=== PATIENT | female | born 1935 | race Caucasian/White ===

== ENCOUNTER 2016-04-11 14:11 | Inpatient (IN) | payer OTHER ==
[~2016-04-11] VITALS: Ht 157.5 cm; Wt 65.0 kg
[~2016-04-11 14:11] MED LIST: ANT25 PO; ASPI1CAP2 PO; BUSP1TAB46 PO; CALC600T57 PO; CYM30 PO; FOLI1TAB7 PO; HYDR2.5C37 TOP; LEVO150T9 PO; MIRA1TAB3 PO; MRLP527 PO; MTHI50 INJ; MULT-1102 PO; MUPI2OIN9 TOP; ONDA4TAB10 SL; PLQ200 PO; RANI300T PO; SIMV-150 PO; TAPE1TAB9 PO; TAPE50TA PO
[2016-04-11] MEDS ORDERED: MENTOIN TOP (14:51)
[2016-04-11] MEDS ORDERED: POTA10CA28 PO (14:51)
[2016-04-11] MEDS ORDERED: LOPE-5 PO (14:51)
[2016-04-11] MEDS ORDERED: LEVO1TAB35 PO (14:51)
[2016-04-11] MEDS ORDERED: NUTR-7 PO (14:51)
[2016-04-11] MEDS ORDERED: CALCTAB7 PO (14:51)
[2016-04-11] MEDS ORDERED: SACC250C PO (14:51)
--- NOTE | 2016-04-11 15:19 | EMERGENCY ROOM VISIT NOTE ---
History Report prepared by Devorah: Julisa Valenzuela Under the Supervision of: Dr. Alyssa Acosta M.D. First contact with patient: 14:31 Chief Complaint: RESPIRATORY PROBLEMS Stated Complaint: CONFUSION/ LETHARGIC Nursing Triage Summary: PT PRESENTS VIA AMBULANCE FROM [facility] WITH C/O HYPOXIA AND MENTAL STATUS CHANGES DAUGHTER AT BEDSIDE REPORTS THAT PT HAS HAD SEVERAL RECENT HOSPITALIZATIONS INCLUDING FOR PNEUMONIA AND WEAKNESS PT HAS HAD CONFUSION AND WORSENING SOB BEGINNING FRIDAY 04/07 LEVAQUIN PO BEGAN OVER THE WEEKEND AT [facility] LASIX GIVEN X 3 DAYS LAST WEEK FOR BILATERAL HAND AND LOWER EXTREMITY SWELLING History of Present Illness The patient is a 81 year old female who presents to the Emergency Room with complaints of for worsening generalized weakness beginning 2 days prior to arrival. The patient recently has been experiencing hypoxia. When she exerts herself her oxygen stats drop to 86% and during ambulation her oxygen stats dropped into the 60s. The patient is currently at [facility] for rehabilitation for pneumonia, altered mental status, and weakness. She has been there a few times in the past month. Upon her last discharge the patient experienced diarrhea due to outpatient antibiotics and was back to [facility] a few days later. The patient's daughter is concerned due to the patient worsening weakness, not being strong enough to feed herself, confusion, and the new hypoxia. She has not had a fever recently. Blood work, urine sample and chest X-Ray was done earlier this week. The blood work and urine shows no abnormalities, the chest X-Ray did show a small area of pneumonia. She is currently on Levaquin. She also within the past year has lost 102 pounds. Source of History: patient Onset: 2 days [employer]AME DES[employer] Position: other (global) Quality: other (generalized weakness) Timing: worsening Associated Symptoms: + diarrhea Note: Patient is experiencing hypoxia and altered mental status. Review of Systems See HPI for pertinent positives & negatives. A total of 10 systems reviewed and were otherwise negative. 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) (21) Lupus (22) Lyme disease (23) Meniere disease (24) Nausea (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 (26) Osteoporosis Nos (27) Pleural effusion (28) Rheumatoid arthritis (29) Right lower lobe pneumonia (30) Stomach problems (31) Stroke (32) Stroke-like symptoms (33) Ulcer (34) Vomiting (35) Weakness Surgical Problems: (1) Post-operative state (2) Post-operative state Family History Diabetes mellitus FH: cancer FH: lung disease Gallbladder disease Hypertension Kidney disease Social History Smoking Status: Former Smoker Alcohol Use: none Drug Use: none Marital Status: Housing Status: assisted living Occupation Status: retired Current/Historical Medications Scheduled Aspirin-Dipyridamole (Aspirin/Dipyridamole 25-200 mg), 1 CAP PO BID Calcium Carbonate-Vitamin D W/ (Caltrate 600 Plus), 1 TAB PO BID Duloxetine HCl (Duloxetine HCl), 30 MG PO BID Folic Acid (Folvite), 3 MG PO DAILY Hydroxychloroquine Sulfate (Hydroxychloroquine Sulfat), 200 MG PO BID Levofloxacin (Levaquin), 750 MG PO HS Levothyroxine Sodium (Levothyroxine Sodium), 150 MCG PO DAILY Menthol-Zinc Oxide (Calmoseptine), 1 APPLN TOP QPM Methotrexate (Methotrexate Sodium), 25 MG INJ WK Mirabegron (Myrbetriq Er), 50 MG PO DAILY Multiple Vitamin (One Daily Essential), 1 TAB PO DAILY Nutritional Supplements (Boost), 1 DOSE PO TID Polyethylene (Polyethylene Glycol 3350), 17 GM PO DAILY Potassium Chloride (Micro-K Ext Rel), 10 MEQ PO QAM Ranitidine Hcl (Zantac), 300 MG PO BID Saccharomyces Boulardii (Florastor), 250 MG PO QAM Simvastatin (Simvastatin), 10 MG PO DAILY Tapentadol Hcl (Nucynta Er), 50 MG PO BID Scheduled PRN Buspirone Hcl (Buspirone Hcl), 7.5 MG PO BID PRN for Anxiety Loperamide Hcl (Imodium A-D), 2 MG PO DAILY PRN for Diarrhea Meclizine HCl (Meclizine HCl), 25 MG PO TID PRN for Dizziness or Vertigo Ondasetron Odt (Zofran Odt), 4 MG SL Q4-6HRS PRN for Nausea Tapentadol Hcl (Nucynta), 50 MG PO Q6H PRN for Pain Allergies Coded Allergies: BEE STING (Unverified Allergy, Severe, THROAT SWELLING, 03/08/16) Carbamazepine (Verified Allergy, Unknown, unkn, 03/08/16) Gabapentin (Verified Allergy, Unknown, SWELLING, 03/08/16) NSAIDs (Verified Adverse Reaction, Severe, ELEVATES LIVER ENZYMES, ) Atorvastatin (Verified Adverse Reaction, Intermediate, AFFECTS DIGESTION, 03/08/16) Acetaminophen (Verified Adverse Reaction, Unknown, contraindicated, impairs liver function, 03/08/16) Chocolate (Verified Adverse Reaction, Unknown, Other, 03/08/16) Due to Meniere's Disease Meloxicam (Verified Adverse Reaction, Unknown, AFFECTS KIDNEYS, 03/08/16) Metformin (Verified Adverse Reaction, Unknown, AFFECTS KIDNEYS, 03/08/16) Physical Exam Vital Signs Date Time Temp Pulse Resp B/P Pulse Ox O2 Delivery O2 Flow Rate FiO2 04/11/16 18:39 89 16 160/64 100 Room Air 04/11/16 15:56 86 19 160/73 100 Nasal Cannula 3.0 04/11/16 14:31 98 Nasal Cannula 3.0 04/11/16 14:22 36.8 86 20 135/55 98 Nasal Cannula 3.0 04/11/16 14:22 85 Room Air 04/11/16 14:22 85 Room Air 04/11/16 14:21 89 Physical Exam Vital signs reviewed. General: Elderly, frail, on nasal canula O2 breathing from mouth, in no significant distress. HEENT: No scleral icterus, PERRLA, neck supple. Atraumatic. Dry mucous membranes. Cardiovascular: Regular rate and rhythm, no extra sounds. Pulmonary: Diminished breath sounds bilaterally. Abdomen: Soft, nontender, nondistended, positive bowel sounds. Musculoskeletal: Atraumatic, no peripheral edema. Neurologic: Patient somnolent, but arousable. Somewhat verbal but falls asleep quickly Skin: 1+ pitting edema to lower extremities bilaterally. Medical Decision & Procedures ER Provider Diagnostic Interpretation: X-ray results as stated below per my interpretation and radiologist interpretation. Other radiology results as stated below per my review and radiologist interpretation: CHEST ONE VIEW PORTABLE HISTORY: Short of breath. Hypoxia. Altered mental status. COMPARISON: Chest 03/17/2016. FINDINGS: The heart remains mildly enlarged. There are mitral annulus calcifications. Small to moderate bilateral pleural effusions have slightly increased in size. Hazy appearance to the bilateral midlung zones which favor fluid within the bilateral major fissures. Progressive interstitial and vascular thickening consistent with pulmonary edema. Degenerative changes within the bilateral shoulders. Prior cholecystectomy. There is a 1 segment nodular density at the base of right lower lobe. This is not present on the prior study. IMPRESSION: 1. Progression of the mild interstitial pulmonary edema and [id number] bilateral pleural effusions. 2. Hazy appearance to the bilateral midlung zones. This favors layering pleural fluid within the bilateral major fissures. 3. A 1 cm nodular density the right lower lobe. This was not present on the prior study and may be due to summation of shadows. This bears watching future examinations to ensure resolution. Electronically signed by: Conor Garsia M.D. 04/11/2016 4:27 PM Dictated Date/Time: 04/11/2016 4:[address] ANGIOGRAM OF THE CHEST CLINICAL HISTORY: Hypoxia and elevated d-dimer. Shortness of breath. Suspected pulmonary embolism. COMPARISON STUDY: 02/26/2016 TECHNIQUE: Following the IV administration of 90 mL of Optiray-320, CT angiogram of the thorax was performed from the thoracic inlet to the lung bases utilizing the pulmonary embolus protocol. Images are reviewed in the axial, sagittal, and coronal planes. IV contrast was administered without complication. MIP imaging was performed. CT DOSE: 335.90 mGy.cm FINDINGS: No pathologically enlarged axillary mediastinal or hilar lymph nodes were visualized. There was no evidence of thoracic aortic dilatation. There were no pulmonary artery filling defects to indicate acute pulmonary embolism. There is a moderate left pleural effusion and small right pleural effusion. There are left lower lobe compressive atelectatic changes. There are nodular airspace opacities within the right lower lobe, and right upper lobe. The findings are likely secondary to a pneumonitis. Repeat imaging subsequent to appropriate antibiotic therapy is recommended. There are degenerative changes present within the thoracic spine. Posterior osteophytes result in severe spinal canal narrowing at the T9-T10 and T10-11 levels. IMPRESSION: 1. No CT evidence of acute pulmonary embolism 2. Moderate left pleural effusion and small right pleural effusion 3. Left lower lobe compressive atelectatic changes 4. Nodular airspace opacities within the right lower lobe and right lower lobe, likely secondary to pneumonia 5. Persistent degenerative changes within the thoracic spine with posterior osteophytes and secondary significant spinal canal narrowing Electronically signed by: Bebo Figueroa M.D. 04/11/2016 6:59 PM Dictated Date/Time: 04/11/2016 6:53 PM Laboratory Results 04/11/16 16:30 Red Blood Count 3.22, Mean Corpuscular Volume 92.9, Mean Corpuscular Hemoglobin 29.8, Mean Corpuscular Hemoglobin Concent 32.1, Mean Platelet Volume 9.4, Neutrophils (%) (Auto) 90.9, Lymphocytes (%) (Auto) 5.9, Monocytes (%) (Auto) 2.8, Eosinophils (%) (Auto) 0.0, Basophils (%) (Auto) 0.0, Neutrophils # (Auto) 13.45, Lymphocytes # (Auto) 0.87, Monocytes # (Auto) 0.42, Eosinophils # (Auto) 0.00, Basophils # (Auto) 0.00 04/11/16 16:30 Test 04/11/16 15:25 04/11/16 15:50 04/11/16 16:30 D-Dimer 5130 ug/L FEU (0-500) Bedside Lactic Acid Venous 0.76 mmol/L (0.90-1.70) White Blood Count 14.80 K/uL (4.8-10.8) Red Blood Count 3.22 M/uL (4.2-5.4) Hemoglobin 9.6 g/dL (12.0-16.0) Hematocrit 29.9 % (37-47) Mean Corpuscular Volume 92.9 fL (80-100) Mean Corpuscular Hemoglobin 29.8 pg (25-34) Mean Corpuscular Hemoglobin Concent 32.1 g/dl (32-36) Platelet Count 217 K/uL (130-400) Mean Platelet Volume 9.4 fL (7.4-10.4) Neutrophils (%) (Auto) 90.9 % Lymphocytes (%) (Auto) 5.9 % Monocytes (%) (Auto) 2.8 % Eosinophils (%) (Auto) 0.0 % Basophils (%) (Auto) 0.0 % Neutrophils # (Auto) 13.45 K/uL (1.4-6.5) Lymphocytes # (Auto) 0.87 K/uL (1.2-3.4) Monocytes # (Auto) 0.42 K/uL (0.11-0.59) Eosinophils # (Auto) 0.00 K/uL (0-0.5) Basophils # (Auto) 0.00 K/uL (0-0.2) RDW Standard Deviation 53.5 fL (36.4-46.3) RDW Coefficient of Variation 15.8 % (11.5-14.5) Immature Granulocyte % (Auto) 0.4 % Immature Granulocyte # (Auto) 0.06 K/uL (0.00-0.02) Anion Gap 5.0 mmol/L (3-11) Est Creatinine Clear Calc Drug Dose 58.6 ml/min Estimated GFR () 96.9 Estimated GFR (Non- 83.6 BUN/Creatinine Ratio 38.9 (10-20) Calcium Level 9.6 mg/dl (8.5-10.1) Magnesium Level 1.6 mg/dl (1.8-2.4) Total Bilirubin 0.4 mg/dl (0.2-1) Direct Bilirubin 0.2 mg/dl (0-0.2) Aspartate Amino Transf (AST/SGOT) 32 U/L (15-37) Alanine Aminotransferase (ALT/SGPT) 41 U/L (12-78) Alkaline Phosphatase 71 U/L (45-117) Total Creatine Kinase 62 U/L (26-192) Creatine Kinase MB 4.2 ng/ml (0.5-3.6) Creatine Kinase MB Ratio 6.8 (0-3.0) Total Protein 6.2 gm/dl (6.4-8.2) Albumin 2.4 gm/dl (3.4-5.0) Laboratory results per my review. Medications Administered Medications (Trade) Dose Ordered Sig/Ugo Route Start Time Stop Time Status Last Admin Dose Admin Sodium Chloride (Nss 1000ml) 1,000 ml @ 125 mls/hr Q8H STAT IV 04/11/16 15:24 04/12/16 15:52 DC 04/11/16 15:24 125 MLS/HR ECG Indication: weakness Rate (beats per minute): 86 Rhythm: normal sinus Findings: PAC, RBBB, no acute ischemic change, no ectopy, other ( repolarization abnormalities in anterior leads) Change: no significant change (from 03/10/16) ED Course 1431: Past medical records reviewed. The patient was evaluated in room B12. A complete history and physical examination was performed. 1524: Sodium Chloride 1,000 ml @ 125 mls/hr IV. 1730: I reviewed the patient's case with Dr. Valentino ORONA. Dr. Avelar will evaluate the patient for further management. 1751: Aspirin Chew 324 mg PO. Medical Decision The patient is a 81 year old female who presents to the ED with complaints of weakness. Differentials include etiologies such as metabolic, infection, hypo/ hyperglycemia, electrolyte abnormalities, cardiac sources, intracerebral event, toxicologic, neurologic, as well as others were entertained. This patient was evaluated and appeared to be in no significant distress although she is somnolent and has an altered mental status according to her daughter. IV access was obtained and laboratory work was drawn. The patient was hydrated with normal saline solution. She is found to have a leukocytosis and an mildly elevated troponin. Chest x-ray reveals pleural effusions and patchy densities. Laboratory work reveals a markedly elevated d-dimer. EKG reveals a right bundle-branch block with PACs and no acute ischemia. CT scan of the chest was ordered and is pending. Patient was ordered aspirin to chew although nursing staff states that she often chokes. This was held. Patient and family were informed of the findings, patient will be evaluated by the hospitalist service for further management. Consults Time Called: 1728 Consulting Physician: Dr. Valentino ORONA Returned Call: 1730 I reviewed the patient's case with Dr. Valentino ORONA. Dr. Avelar will evaluate the patient for further management. Impression Primary Impression: Elevated troponin Additional Impressions: Altered mental status Leukocytosis Scribe Attestation The scribe's documentation has been prepared under my direction and personally reviewed by me in its entirety. I confirm that the note above accurately reflects all work, treatment, procedures, and medical decision making performed by me. Departure Information Dispostion Being Evaluated By Hospitalist Referrals Luis Parada M.D. (PCP) Problem Qualifiers Additional Impressions: Altered mental status Altered mental status type: delirium Qualified Codes: R41.0 - Disorientation , unspecified Leukocytosis Leukocytosis type: unspecified Qualified Codes: D72.829 - Elevated white blood cell count, unspecified
[2016-04-11] MEDS ORDERED: SODIUM CHLORIDE 0.9% 1000ML 1,000 ML IV STA (15:24)
--- NOTE | 2016-04-11 16:28 | DIAGNOSTIC IMAGING REPORT ---
CHEST ONE VIEW PORTABLE HISTORY: Short of breath. Hypoxia. Altered mental status. COMPARISON: Chest 03/17/2016. FINDINGS: The heart remains mildly enlarged. There are mitral annulus calcifications. Small to moderate bilateral pleural effusions have slightly increased in size. Hazy appearance to the bilateral midlung zones which favor fluid within the bilateral major fissures. Progressive interstitial and vascular thickening consistent with pulmonary edema. Degenerative changes within the bilateral shoulders. Prior cholecystectomy. There is a 1 segment nodular density at the base of right lower lobe. This is not present on the prior study. IMPRESSION: 1. Progression of the mild interstitial pulmonary edema and [id number] bilateral pleural effusions. 2. Hazy appearance to the bilateral midlung zones. This favors layering pleural fluid within the bilateral major fissures. 3. A 1 cm nodular density the right lower lobe. This was not present on the prior study and may be due to summation of shadows. This bears watching future examinations to ensure resolution. Electronically signed by: Conor Garsia M.D. 04/11/2016 4:27 PM Dictated Date/Time: 04/11/2016 4:24 PM
[2016-04-11 16:37] LABS: COMPLETE YES; HEMATOCRIT 29.9 % (37-47); IG% 0.4 %; LYMPH % 5.9 %; LYMPH ABS # 0.87 K/uL (1.2-3.4); MEAN CELL VOLUME 92.9 fL (80-100); MEAN CORPUSCULAR HEMOGLOBIN 29.8 pg (25-34); MEAN CORPUSCULAR HGB CONC 32.1 g/dl (32-36); MEAN PLATELET VOLUME 9.4 fL (7.4-10.4); MONO % 2.8 %; NEUT % 90.9 %; PLATELET COUNT 217 K/uL (130-400); RED BLOOD COUNT 3.22 M/uL (4.2-5.4)
[2016-04-11 17:07] LABS: BUN/CREATININE RATIO 38.9 (10-20); CALCIUM 9.6 mg/dl (8.5-10.1); CREATININE 0.67 mg/dl (0.60-1.20); MAGNESIUM 1.6 mg/dl (1.8-2.4); POTASSIUM 3.9 mmol/L (3.5-5.1)
[2016-04-11] MEDS ORDERED: OPTIRAY 320 IV PRN (17:15)
[2016-04-11 17:23] LABS: CKMB/CK RATIO 6.8 (0-3.0)
[2016-04-11] MEDS ORDERED: ASPIRIN 324 MG CHEW PO STA (17:51)
--- NOTE | 2016-04-11 19:00 | DIAGNOSTIC IMAGING REPORT ---
CT ANGIOGRAM OF THE CHEST CLINICAL HISTORY: Hypoxia and elevated d-dimer. Shortness of breath. Suspected pulmonary embolism. COMPARISON STUDY: 02/26/2016 TECHNIQUE: Following the IV administration of 90 mL of Optiray-320, CT angiogram of the thorax was performed from the thoracic inlet to the lung bases utilizing the pulmonary embolus protocol. Images are reviewed in the axial, sagittal, and coronal planes. IV contrast was administered without complication. MIP imaging was performed. CT DOSE: 335.90 mGy.cm FINDINGS: No pathologically enlarged axillary mediastinal or hilar lymph nodes were visualized. There was no evidence of thoracic aortic dilatation. There were no pulmonary artery filling defects to indicate acute pulmonary embolism. There is a moderate left pleural effusion and small right pleural effusion. There are left lower lobe compressive atelectatic changes. There are nodular airspace opacities within the right lower lobe, and right upper lobe. The findings are likely secondary to a pneumonitis. Repeat imaging subsequent to appropriate antibiotic therapy is recommended. There are degenerative changes present within the thoracic spine. Posterior osteophytes result in severe spinal canal narrowing at the T9-T10 and T10-11 levels. IMPRESSION: 1. No CT evidence of acute pulmonary embolism 2. Moderate left pleural effusion and small right pleural effusion 3. Left lower lobe compressive atelectatic changes 4. Nodular airspace opacities within the right lower lobe and right lower lobe, likely secondary to pneumonia 5. Persistent degenerative changes within the thoracic spine with posterior osteophytes and secondary significant spinal canal narrowing Electronically signed by: Bebo Figueroa M.D. 04/11/2016 6:59 PM Dictated Date/Time: 04/11/2016 6:53 PM
[2016-04-11] MEDS ORDERED: ONDANSETRON INJ 2 MG/ML 2 ML VIAL IV PRN (19:45)
[2016-04-11] MEDS ORDERED: ZOLPIDEM TARTRATE 5 MG TAB PO PRN (19:45)
[2016-04-11] MEDS ORDERED: TAPENTADOL HCL 50 MG TAB PO PRN (19:45)
[2016-04-11] MEDS ORDERED: MECLIZINE HCL 25 MG TAB PO PRN (19:45)
[2016-04-11] MEDS ORDERED: NITROGLYCERIN 0.4 MG SL PER TAB CHARGE SL PRN (19:45)
[2016-04-11] MEDS ORDERED: METHYLPREDNISOLONE IV 60 MG in SYRINGE 0 ML IV SCH (19:45)
[2016-04-11] MEDS ORDERED: VANCOMYCIN INJ 1,500 MG in SODIUM CHLORIDE 0.9% 500ML 500 ML IV STA (20:10)
[2016-04-11] MEDS: BOOST VANILLA PO SCH ×2 (21:00)
[2016-04-11] MEDS: IPRATROPIUM BROMIDE NEB SOLN 0.02% 2.5 ML VIAL INH SCH (21:00)
[2016-04-11] MEDS ORDERED: SIMVASTATIN 10 MG TAB PO SCH (21:00)
[2016-04-11] MEDS ORDERED: MENTHOL-ZINC OXIDE 360 APPLN/120 GM TUBE EXT SCH (21:00)
[2016-04-11] MEDS: LEVALBUTEROL 1.25MG/0.5ML NEB INH SCH (21:00)
[2016-04-11] MEDS ORDERED: LEVALBUTEROL/IPRATROPIUM NEB INH SCH (21:00)
[2016-04-11 21:16] VITALS: BP 192/83; PULSE 79; TEMP 36.6; Ht 157.5 cm; Wt 65.0 kg
[2016-04-11] MEDS ORDERED: PIPERACILL/TAZOBAC IV 3.375 GM in DEXTROSE 5% 100ML IV ONE (21:30)
[2016-04-11] MEDS ORDERED: IPRATROPIUM BROMIDE NEB SOLN 0.02% 2.5 ML VIAL INH PRN (21:30)
[2016-04-11] MEDS ORDERED: LEVALBUTEROL 1.25MG/0.5ML NEB INH PRN (21:30)
[2016-04-11] MEDS ORDERED: VANCOMYCIN CONSULT ACTIVE PRN (21:45)
[2016-04-11] MEDS ORDERED: PIPERACILL/TAZOBAC CONSULT ACTIVE PRN (21:45)
[2016-04-11] MEDS: METHYLPREDNISOLONE IV 60 MG in SYRINGE 0 ML IV SCH (21:56)
[2016-04-11] MEDS: CALCIUM 600MG + VIT D 400 IU TAB PO SCH (21:58)
[2016-04-11] MEDS: DULOXETINE (CYMBALTA) 30 MG CAP PO SCH (21:58)
[2016-04-11] MEDS: DIPYRIDAMOLE/ASPIRIN CAP PO SCH (22:00)
[2016-04-11] MEDS ORDERED: LEVOFLOXACIN / D5W 500 MG in PREMIXED IN D5W 100 ML IV SCH (22:00)
[2016-04-11] MEDS: GUAIFENESIN 600 MG TABCR PO SCH (22:02)
[2016-04-11] MEDS: RANITIDINE HCL 150 MG TAB PO SCH (22:03)
[2016-04-11] MEDS: HYDROXYCHLOROQUINE SULFATE 200 MG TAB PO SCH (22:03)
[2016-04-11] MEDS: SACCHAROMYCES BOUL (FLORASTOR) 250 MG CAP PO SCH (22:04)
[2016-04-11] MEDS: TAPENTADOL ER 50 MG TABCR PO SCH (22:09)
[2016-04-11] MEDS: ALBUMIN HUMAN 25% 12.5 GM/50 ML VIAL IV SCH ×2 (22:17→22:31)
--- NOTE | 2016-04-11 22:59 | Pharmacy Progress Note ---
Pharmacy Antibiotic Consult Date of Service: Apr 11, 2016. Pharmacy Dosing Scope Pharmacy is consulted to initiate vancomycin and Zosyn IV dosing therapy, order appropriate labs and adjust drug dose/frequency. Subjective The patient is a 81 year old female admitted on Apr 11, 2016 at 19:39 with pnx. Objective Height (Feet): 5 Height (Inches): 2.00 Weight (Kilograms): 65.000 Lab Results (24hrs): Laboratory Tests Test 04/11/16 16:30 BUN/Creatinine Ratio 38.9 Blood Urea Nitrogen 26 mg/dl Creatinine 0.67 mg/dl White Blood Count 14.80 K/uL Red Blood Count 3.22 M/uL Hemoglobin 9.6 g/dL Hematocrit 29.9 % Mean Corpuscular Volume 92.9 fL Mean Corpuscular Hemoglobin 29.8 pg Mean Corpuscular Hemoglobin Concent 32.1 g/dl Platelet Count 217 K/uL Mean Platelet Volume 9.4 fL Neutrophils (%) (Auto) 90.9 % Lymphocytes (%) (Auto) 5.9 % Monocytes (%) (Auto) 2.8 % Eosinophils (%) (Auto) 0.0 % Basophils (%) (Auto) 0.0 % Neutrophils # (Auto) 13.45 K/uL Lymphocytes # (Auto) 0.87 K/uL Monocytes # (Auto) 0.42 K/uL Eosinophils # (Auto) 0.00 K/uL Basophils # (Auto) 0.00 K/uL Micro Results: Blood cx X 2 are pending. Recent Pertinent Medications Levaquin 750mg po hs prior to admission. Assessment & Plan Pt is admitted with pnx from [facility] where she was admitted for rehab following a recent hospital stay. During that admission, she was on a 7-day course of vancomycin. Dose was 1000mg q 24h, trough below goal range so will shorten interval and obtain trough level with 4th dose. Vancomycin: Loading dose: 1500 mg IV X 1 dose (~25mg/kg) then: 1000mg IV every 18 hours (~15mg/kg). Goal trough level estimate: between 15 - 20 mcg/ml for good lung penetration. Peak and trough or random level has been ordered for: 2/2 prior to 0400 dose. Pt also receiving: Zosyn 3.375gm q 8 h extended infusion for CrCl greater than 20ml/min. Levaquin 500mg IV q 24h is ordered on day #2 of Levaquin therapy (750mg po daily prior to admission). Pharmacy will continue to follow and will adjust dose/frequency as necessary. Thank you
[2016-04-12] VITALS (10 sets, daily range): BP systolic 135–178; BP diastolic 61–102; PULSE 79–93; TEMP 36.5–37; O2SAT 94–100
[2016-04-12] MEDS: IPRATROPIUM BROMIDE NEB SOLN 0.02% 2.5 ML VIAL INH SCH ×3 (01:57→14:07)
[2016-04-12] MEDS: LEVALBUTEROL 1.25MG/0.5ML NEB INH SCH ×3 (01:57→14:07)
[2016-04-12] MEDS: PIPERACILL/TAZOBAC IV 3.375 GM in DEXTROSE 5% 100ML 100 ML IV SCH ×2 (02:14→10:02)
[2016-04-12] MEDS: ALBUMIN HUMAN 25% 12.5 GM/50 ML VIAL IV SCH ×4 (02:22→10:01)
--- NOTE | 2016-04-12 04:07 | History and Physical ---
History & Physical Date & Time of Service: Apr 12, 2016 at 03:48 Chief Complaint: Elevated Troponin, Right Lower Lobe Pneumonia Primary Care Physician: Luis Parada M.D. History of Present Illness Source: patient, family The patient is a 81-year-old female brought to the emergency department by ambulance from [facility] with complaint of hypoxia and mental status changes. The patient is not able to contribute to her history of present illness due to these changes, and her daughter who is at bedside axis historian. Patient was just recently hospitalized for pneumonia. Her daughter reports worsening shortness of breath and confusion since April 07, when she was begun on Levaquin orally at [facility]. She had also been given Lasix orally 3 days last week for bilateral hand and lower extremity swelling. She was found to have hypoxia to 86%, with dropping during ambulation into the 60s. Past Medical/Surgical History Medical Problems: (1) Acute renal failure syndrome Status: Resolved (2) Shelton's palsy Status: Chronic (3) Depressive Disorder Nec Status: Chronic (4) Diabetes Status: Chronic (5) Diabetes Status: Chronic (6) Esophageal Reflux Status: Chronic (7) Foot drop, bilateral Status: Chronic (8) Gallbladder problem Status: Chronic (9) Heart disease Status: Chronic (10) HTN (hypertension) Status: Chronic (11) Hyponatremia Status: Resolved (12) Hypothyroidism Nos Status: Chronic (13) Intractable pain Status: Resolved (14) Kidney problem Status: Chronic (15) Laceration of left elbow Status: Resolved (16) Laceration of left elbow Status: Resolved (17) Lupus Status: Chronic (18) Lyme disease Status: Resolved (19) Meniere disease Status: Chronic (20) osteoarthritis right shoulder Status: Chronic (21) Osteoporosis Nos Status: Chronic (22) Rheumatoid arthritis Status: Chronic (23) Stomach problems Status: Resolved (24) Ulcer Status: Resolved (25) Vomiting Status: Resolved Surgical Problems: (1) Post-operative state Status: Resolved (2) Post-operative state Status: Resolved Family History Diabetes mellitus FH: cancer FH: lung disease Gallbladder disease Hypertension Kidney disease Social History Smoking Status: Never Smoker Smokeless Tobacco Use: No Alcohol Use: none Drug Use: none Marital Status: Housing status: lives with family Occupational Status: retired Immunizations History of Influenza Vaccine: Yes History of Tetanus Vaccine?: Yes Tetanus Immunization Date: Apr 28, 1999 History of Pneumococcal: Yes Pneumococcal Date: Nov 22, 2002 History of Hepatitis B Vaccine: No Multi-Drug Resistant Organisms History of MDRO: No Allergies Coded Allergies: BEE STING (Unverified Allergy, Severe, THROAT SWELLING, 03/08/16) Carbamazepine (Verified Allergy, Unknown, unkn, 03/08/16) Gabapentin (Verified Allergy, Unknown, SWELLING, 03/08/16) NSAIDs (Verified Adverse Reaction, Severe, ELEVATES LIVER ENZYMES, ) Atorvastatin (Verified Adverse Reaction, Intermediate, AFFECTS DIGESTION, 03/08/16) Acetaminophen (Verified Adverse Reaction, Unknown, contraindicated, impairs liver function, 03/08/16) Chocolate (Verified Adverse Reaction, Unknown, Other, 03/08/16) Due to Meniere's Disease Meloxicam (Verified Adverse Reaction, Unknown, AFFECTS KIDNEYS, 03/08/16) Metformin (Verified Adverse Reaction, Unknown, AFFECTS KIDNEYS, 03/08/16) Home Medications Scheduled Aspirin-Dipyridamole (Aspirin/Dipyridamole 25-200 mg), 1 CAP PO BID Calcium Carbonate-Vitamin D W/ (Caltrate 600 Plus), 1 TAB PO BID Duloxetine HCl (Duloxetine HCl), 30 MG PO BID Folic Acid (Folvite), 3 MG PO DAILY Hydroxychloroquine Sulfate (Hydroxychloroquine Sulfat), 200 MG PO BID Levofloxacin (Levaquin), 750 MG PO HS Levothyroxine Sodium (Levothyroxine Sodium), 150 MCG PO DAILY Menthol-Zinc Oxide (Calmoseptine), 1 APPLN TOP QPM Methotrexate (Methotrexate Sodium), 25 MG INJ WK Mirabegron (Myrbetriq Er), 50 MG PO DAILY Multiple Vitamin (One Daily Essential), 1 TAB PO DAILY Nutritional Supplements (Boost), 1 DOSE PO TID Polyethylene (Polyethylene Glycol 3350), 17 GM PO DAILY Potassium Chloride (Micro-K Ext Rel), 10 MEQ PO QAM Ranitidine Hcl (Zantac), 300 MG PO BID Saccharomyces Boulardii (Florastor), 250 MG PO QAM Simvastatin (Simvastatin), 10 MG PO DAILY Tapentadol Hcl (Nucynta Er), 50 MG PO BID Scheduled PRN Buspirone Hcl (Buspirone Hcl), 7.5 MG PO BID PRN for Anxiety Loperamide Hcl (Imodium A-D), 2 MG PO DAILY PRN for Diarrhea Meclizine HCl (Meclizine HCl), 25 MG PO TID PRN for Dizziness or Vertigo Ondasetron Odt (Zofran Odt), 4 MG SL Q4-6HRS PRN for Nausea Tapentadol Hcl (Nucynta), 50 MG PO Q6H PRN for Pain Review of Systems The patient is unable to contribute to her review of systems due to altered mental status, and this is supplied by the daughter as noted above. Physical Exam Vital Signs Date Time Temp Pulse Resp B/P Pulse Ox O2 Delivery O2 Flow Rate FiO2 04/12/16 01:57 84 18 100 Nasal Cannula 3.0 04/12/16 00:05 36.6 79 16 157/61 100 Nasal Cannula 3.5 04/12/16 00:00 Nasal Cannula 3.0 04/11/16 21:16 36.6 79 20 192/83 Nasal Cannula 3.0 04/11/16 20:19 91 04/11/16 20:00 92 188/84 91 Nasal Cannula 4.0 04/11/16 18:39 89 16 160/64 100 Room Air 04/11/16 15:56 86 19 160/73 100 Nasal Cannula 3.0 04/11/16 14:31 98 Nasal Cannula 3.0 04/11/16 14:22 36.8 86 20 135/55 98 Nasal Cannula 3.0 04/11/16 14:22 85 Room Air 04/11/16 14:22 85 Room Air 04/11/16 14:21 89 The patient is lethargic, not responding other than moaning,. HEENT--PERRL, EOMI, mucous membranes and oropharynx dry. Neck--supple, no JVD or bruits, thyroid normal, trachea midline, no adenopathy. Heart--normal S1 and S2, no extra beats, no murmurs, rubs or gallops. Lungs--rhonchi and wheezes bilaterally, no respiratory distress, no accessory muscle use. Abdomen--normal bowel sounds and soft, nontender and nondistended, no hernias or masses, no organomegaly. Extremities--no cyanosis, clubbing. There is bilaterally 2+ pitting edema. There are good distal pulses b/l. Dermatologic--normal skin turgor, normal color, warm and dry, no abnormal lymph nodes, no rash. Neurologic--cranial nerves II through XII grossly intact. Rheumatologic--deferred Psychiatric--lethargic Diagnostics Laboratory Results Results Past 24 Hours Test 04/11/16 15:25 04/11/16 15:50 04/11/16 16:30 Range/Units D-Dimer 5130 0-500 ug/L FEU Bedside Lactic Acid Venous 0.76 0.90-1.70 mmol/L White Blood Count 14.80 4.8-10.8 K/uL Red Blood Count 3.22 4.2-5.4 M/uL Hemoglobin 9.6 12.0-16.0 g/dL Hematocrit 29.9 37-47 % Mean Corpuscular Volume 92.9 80-100 fL Mean Corpuscular Hemoglobin 29.8 25-34 pg Mean Corpuscular Hemoglobin Concent 32.1 32-36 g/dl Platelet Count 217 130-400 K/uL Mean Platelet Volume 9.4 7.4-10.4 fL Neutrophils (%) (Auto) 90.9 % Lymphocytes (%) (Auto) 5.9 % Monocytes (%) (Auto) 2.8 % Eosinophils (%) (Auto) 0.0 % Basophils (%) (Auto) 0.0 % Neutrophils # (Auto) 13.45 1.4-6.5 K/uL Lymphocytes # (Auto) 0.87 1.2-3.4 K/uL Monocytes # (Auto) 0.42 0.11-0.59 K/uL Eosinophils # (Auto) 0.00 0-0.5 K/uL Basophils # (Auto) 0.00 0-0.2 K/uL RDW Standard Deviation 53.5 36.4-46.3 fL RDW Coefficient of Variation 15.8 11.5-14.5 % Immature Granulocyte % (Auto) 0.4 % Immature Granulocyte # (Auto) 0.06 0.00-0.02 K/uL Sodium Level 134 136-145 mmol/L Potassium Level 3.9 3.5-5.1 mmol/L Chloride Level 87 98-107 mmol/L Carbon Dioxide Level 42 21-32 mmol/L Anion Gap 5.0 3-11 mmol/L Blood Urea Nitrogen 26 7-18 mg/dl Creatinine 0.67 0.60-1.20 mg/dl Est Creatinine Clear Calc Drug Dose 58.6 ml/min Estimated GFR () 96.9 Estimated GFR (Non- 83.6 BUN/Creatinine Ratio 38.9 10-20 Random Glucose 148 70-99 mg/dl Calcium Level 9.6 8.5-10.1 mg/dl Magnesium Level 1.6 1.8-2.4 mg/dl Total Bilirubin 0.4 0.2-1 mg/dl Direct Bilirubin 0.2 0-0.2 mg/dl Aspartate Amino Transf (AST/SGOT) 32 15-37 U/L Alanine Aminotransferase (ALT/SGPT) 41 12-78 U/L Alkaline Phosphatase 71 45-117 U/L Total Creatine Kinase 62 26-192 U/L Creatine Kinase MB 4.2 0.5-3.6 ng/ml Creatine Kinase MB Ratio 6.8 0-3.0 Troponin I 0.103 0-0.045 ng/ml Total Protein 6.2 6.4-8.2 gm/dl Albumin 2.4 3.4-5.0 gm/dl Microbiology Results 04/11/16 Blood Culture, Received Pending Diagnostic Radiology Patient Name: DANNY LOCKWOOD Unit Number: [id number] Dictated: 04/11/161623 Transcribed: 04/11/161623 Sharely[employer]Us Printed Date/Time: [~ rep prt dt]/[~ rep prt tm] [~ rep ct labl] - [~ rep ct ivnm] [facility] [place] [address] Dictated: 04/11/161623 Transcribed: 04/11/161623 Sharely.Us Printed Date/Time: [~ rep prt dt]/[~ rep prt tm] [~ rep ct labl] - [~ rep ct ivnm] CHEST ONE VIEW PORTABLE HISTORY: Short of breath. Hypoxia. Altered mental status. COMPARISON: Chest 03/17/2016. FINDINGS: The heart remains mildly enlarged. There are mitral annulus calcifications. Small to moderate bilateral pleural effusions have slightly increased in size. Hazy appearance to the bilateral midlung zones which favor fluid within the bilateral major fissures. Progressive interstitial and vascular thickening consistent with pulmonary edema. Degenerative changes within the bilateral shoulders. Prior cholecystectomy. There is a 1 segment nodular density at the base of right lower lobe. This is not present on the prior study. IMPRESSION: 1. Progression of the mild interstitial pulmonary edema and [id number] bilateral pleural effusions. 2. Hazy appearance to the bilateral midlung zones. This favors layering pleural fluid within the bilateral major fissures. 3. A 1 cm nodular density the right lower lobe. This was not present on the prior study and may be due to summation of shadows. This bears watching future examinations to ensure resolution. Electronically signed by: Conor Garsia M.D. 04/11/2016 4:27 PM Dictated Date/Time: 04/11/2016 4:24 PM The status of this report is Signed. Draft = Not yet reviewed or approved by Radiologist. Signed = Reviewed and approved by Radiologist. <AttendingPhy></AttendingPhy> <FamilyPhy>Luis Parada M.D.</FamilyPhy> < PrimaryPhy>Luis Parada M.D.</PrimaryPhy> <UnitNumber>[id number]</UnitNumber > <VisitNumber>[id number]</VisitNumber> <PatientName>DANNY LOCKWOOD</ PatientName> <DateOfBirth>1935</DateOfBirth> <Location>[facility]</Location> < ServiceDate>04/11/16</ServiceDate> <MNE>ESINDI</MNE> <OrderingPhy>Alyssa Acosta M.D.</OrderingPhy> <OrderingPhyMNE>f rep ord dr alvarez</OrderingPhyMNE> < DictatingPhyMNE>f rep dict dr alvarez</DictatingPhyMNE> <CCListMNE>f rep ct rakane</ CCListMNE> <AdmittingPhyMNE>f pt admit dr alvarez</AdmittingPhyMNE> <AttendingPhyMNE >f pt attend dr alvarez</AttendingPhyMNE> <ConsultingPhyMNE>f pt consult dr alvarez</ConsultingPhyMNE> <FamilyPhyMNE>f pt fam dr alvarez</FamilyPhyMNE> <OtherPhyMNE>f pt other dr alvarez</OtherPhyMNE> < PrimaryPhyMNE>f pt prim care dr alvarez</PrimaryPhyMNE> <ReferringPhyMNE>f pt referring dr alvarez</ReferringPhyMNE> Patient Name: DANNY LOCKWOOD Unit Number: [id number] Dictated: 04/11/161852 Transcribed: 04/11/161852 ARG Printed Date/Time: [~ rep prt dt]/[~ rep prt tm] [~ rep ct labl] - [~ rep ct ivnm] [facility] Radiology Department [place], [place] [id number] Dictated: 04/11/161852 Transcribed: 04/11/161852 ARG Printed Date/Time: [~ rep prt dt]/[~ rep prt tm] [~ rep ct labl] - [~ rep ct ivnm] [~ rep ct add3]] CT ANGIOGRAM OF THE CHEST CLINICAL HISTORY: Hypoxia and elevated d-dimer. Shortness of breath. Suspected pulmonary embolism. COMPARISON STUDY: 02/26/2016 TECHNIQUE: Following the IV administration of 90 mL of Optiray-320, CT angiogram of the thorax was performed from the thoracic inlet to the lung bases utilizing the pulmonary embolus protocol. Images are reviewed in the axial, sagittal, and coronal planes. IV contrast was administered without complication. MIP imaging was performed. CT DOSE: 335.90 mGy.cm FINDINGS: No pathologically enlarged axillary mediastinal or hilar lymph nodes were visualized. There was no evidence of thoracic aortic dilatation. There were no pulmonary artery filling defects to indicate acute pulmonary embolism. There is a moderate left pleural effusion and small right pleural effusion. There are left lower lobe compressive atelectatic changes. There are nodular airspace opacities within the right lower lobe, and right upper lobe. The findings are likely secondary to a pneumonitis. Repeat imaging subsequent to appropriate antibiotic therapy is recommended. There are degenerative changes present within the thoracic spine. Posterior osteophytes result in severe spinal canal narrowing at the T9-T10 and T10-11 levels. IMPRESSION: 1. No CT evidence of acute pulmonary embolism 2. Moderate left pleural effusion and small right pleural effusion 3. Left lower lobe compressive atelectatic changes 4. Nodular airspace opacities within the right lower lobe and right lower lobe, likely secondary to pneumonia 5. Persistent degenerative changes within the thoracic spine with posterior osteophytes and secondary significant spinal canal narrowing Electronically signed by: Bebo Figueroa M.D. 04/11/2016 6:59 PM Dictated Date/Time: 04/11/2016 6:53 PM The status of this report is Signed. Draft = Not yet reviewed or approved by Radiologist. Signed = Reviewed and approved by Radiologist. <AttendingPhy></AttendingPhy> <FamilyPhy>Luis Parada M.D.</FamilyPhy> < PrimaryPhy>Luis Parada M.D.</PrimaryPhy> <UnitNumber>[id number]</UnitNumber > <VisitNumber>[id number]</VisitNumber> <PatientName>DANNY LOCKWOOD</ PatientName> <DateOfBirth>1935</DateOfBirth> <Location>[facility]</Location> < ServiceDate>04/11/16</ServiceDate> <MNE>ESINDI</MNE> <OrderingPhy>Alyssa Acosta M.D.</OrderingPhy> <OrderingPhyMNE>f rep ord dr alvarez</OrderingPhyMNE> < DictatingPhyMNE>f rep dict dr alvarez</DictatingPhyMNE> <CCListMNE>f rep ct antonio</ CCListMNE> <AdmittingPhyMNE>f pt admit dr alvarez</AdmittingPhyMNE> <AttendingPhyMNE >f pt attend dr alvarez</AttendingPhyMNE> <ConsultingPhyMNE>f pt consult dr alvarez</ConsultingPhyMNE> <FamilyPhyMNE>f pt fam dr alvarez</FamilyPhyMNE> <OtherPhyMNE>f pt other dr alvarez</OtherPhyMNE> < PrimaryPhyMNE>f pt prim care dr alvarez</PrimaryPhyMNE> <ReferringPhyMNE>f pt referring dr alvarez</ReferringPhyMNE> EKG EKG with normal sinus rhythm at 89, right bundle branch block, no acute ST-T changes. Impression Assessment and Plan Right lower lobe pneumonia/bilateral pleural effusions left greater than right-- Vancomycin IV per renal dosing, Zosyn 3.375 mg IV every 8 hours, levofloxacin 500 mg IV every 24 hours, Solu-Medrol 40 mg IV every 8 hours, guaifenesin extended release 600 mg by mouth twice a day, nasal cannula 2 L of oxygen titrating to keep pulse ox greater than or equal to 92%. Elevated troponin/CHF/hypoalbuminemia--patient be admitted to the telemetry unit , for serial cardiac enzymes, cardiac rhythm monitoring, and a 2-D echocardiogram with Dopplers.. We'll place on albumin with Lasix IV every 6 hours for 4 doses. Lupus/cerebrovascular disease--continue Aggrenox 1 capsule by mouth twice a day , folic acid 3 mg by mouth daily, hydroxychloroquine sulfate 200 mg by mouth twice a day, Nucynta ER 50 mg by mouth twice a day. Methotrexate 25 mg injectable weekly will be on hold. Hypothyroidism--continue levothyroxine sodium 150 g by mouth daily. GERD--continue ranitidine 3 mg by mouth twice a day. Hypercholesterolemia--continue simvastatin 10 mg by mouth daily. Next Anxiety--resume buspirone at 7.5 mg by mouth twice a day, continue duloxetine 30 mg by mouth twice a day. Bladder spasm--continue Myrbetriq er 50 mg by mouth daily. Next Nutrition--boost 1 drink by mouth 3 times a day. Level of Care Telemetry Advanced Directives Existing Advance Directive: Yes Existing Living Will: Yes Existing Power of Medical Laboratory Specialist: Yes Resuscitation Status FULL RESUSCITATION VTE Prophylaxis VTE Risk Assessment Done? Y/N: Yes Risk Level: Moderate Given or contraindicated: SCD's Social Service Consult Lives in [facility]
[2016-04-12] MEDS ORDERED: LEVOTHYROXINE 150 MCG TAB PO SCH (06:00)
[2016-04-12] MEDS: METHYLPREDNISOLONE IV 60 MG in SYRINGE 0 ML IV SCH ×2 (06:29→14:05)
[2016-04-12] MEDS ORDERED: MAGNESIUM SULFATE 1GM / D5W 1 GM in PREMIXED IN D5W 100 ML IV ONE (07:30)
[2016-04-12] MEDS: GUAIFENESIN 600 MG TABCR PO SCH (08:53)
[2016-04-12] MEDS: DULOXETINE (CYMBALTA) 30 MG CAP PO SCH (08:53)
[2016-04-12] MEDS: DIPYRIDAMOLE/ASPIRIN CAP PO SCH (08:53)
[2016-04-12] MEDS: SACCHAROMYCES BOUL (FLORASTOR) 250 MG CAP PO SCH ×2 (08:54→14:00)
[2016-04-12] MEDS: RANITIDINE HCL 150 MG TAB PO SCH (08:55)
[2016-04-12] MEDS: HYDROXYCHLOROQUINE SULFATE 200 MG TAB PO SCH (08:55)
[2016-04-12] MEDS: CALCIUM 600MG + VIT D 400 IU TAB PO SCH (08:55)
[2016-04-12] MEDS: NYSTATIN SUSP 500,000 U/5 ML UDC PO SCH ×2 (08:56→14:06)
[2016-04-12] MEDS: BOOST VANILLA PO SCH ×4 (08:56→14:00)
[2016-04-12] MEDS: TAPENTADOL ER 50 MG TABCR PO SCH (08:58)
[2016-04-12] MEDS ORDERED: POTASSIUM CHLORIDE 10 MEQ TABCR PO SCH (09:00)
[2016-04-12] MEDS ORDERED: MIRABEGRON ER 25 MG TAB PO SCH (09:00)
[2016-04-12] MEDS ORDERED: MULTIVITAMIN TAB PO SCH (09:00)
--- NOTE | 2016-04-12 09:17 | Medical Student: [facility] ---
Med Student History & Physical Date & Time of Service: Apr 12, 2016 at 09:17 Chief Complaint: Elevated Troponin, Right Lower Lobe Pneumonia Primary Care Physician: Luis Parada M.D. History of Present Illness This is a 81 year old white female who was admitted last night after several days of progressively worsening shortness of breath and altered mental status. She has had multiple hospitalizations in the past month and a half. From 02/26- 03/03 she was hospitalized for aspiration pneumonia secondary to esophageal dysmotility. She was placed on zosyn, vancomycin, and levoquin during this stay and subsequently discharged on oral antibiotics. Less than a week later, she returned due to recurrent diarrhea and weakness. She stayed in the hospital from 03/07 until 03/23. Afterwards, she attended [facility] for rehabilitation s/ p pneumonia. This patient has an extensive past medical history including history of multiple strokes, diabetes, CHF, HTN, hypothyroidism, lupus, menieres disease, depression, generalized anxiety disorer, bladder spasms, and rheumatoid arthritis. This patient is extremely hard of hearing and is in a state of altered mental status, therefore history was gathered via charts and patient's daughter. Per patient's daughter, she has had significantly declining health since her first stroke in February of 2015. Past Medical/Surgical History Medical Problems: (1) Anemia Status: Acute (2) Anemia, chronic disease Status: Acute (3) Arm pain, right Status: Acute (4) Ataxia Status: Acute (5) Contusion of sacrum Status: Acute (6) CVA (cerebral vascular accident) Status: Acute (7) Dehydration Status: Acute (8) Dehydration Status: Acute (9) Delirium Status: Acute (10) Depressive Disorder Nec Status: Chronic (11) Diarrhea Status: Acute (12) HALL (dyspnea on exertion) Status: Acute (13) Elevated troponin Status: Acute (14) Elevated troponin Status: Acute (15) Elevated troponin Status: Acute (16) Esophageal Reflux Status: Chronic (17) Fall Status: Acute (18) Frequent falls Status: Acute (19) Headache Status: Acute (20) Headache Status: Acute (21) Headache Status: Acute (22) Hypothyroidism Nos Status: Chronic (23) Intractable vomiting Status: Acute (24) Leukopenia Status: Acute (25) Nausea Status: Acute (26) Orthostasis Status: Acute (27) Osteoporosis Nos Status: Chronic (28) Pneumonia Status: Acute (29) Pneumonia Status: Acute (30) Received intravenous tissue plasminogen activator (tPA) in emergency department Status: Acute (31) Right pulmonary infiltrate on CXR Status: Acute (32) Status post fall Status: Acute (33) Stroke Status: Acute Family History Father: coronary artery disease Mother: coronary artery disease Sibling(s): COPD Social History Smoking Status: Former Smoker (40 pack year history but quit in the past few years) Smokeless Tobacco Use: No Alcohol Use: none Drug Use: none Marital Status: Housing status: alf ([facility]) Occupational Status: retired Immunizations History of Influenza Vaccine: Yes History of Tetanus Vaccine?: Yes Tetanus Immunization Date: Apr 28, 1999 History of Pneumococcal: Yes Pneumococcal Date: Nov 22, 2002 History of Hepatitis B Vaccine: No Allergies Coded Allergies: BEE STING (Unverified Allergy, Severe, THROAT SWELLING, 03/08/16) Carbamazepine (Verified Allergy, Unknown, unkn, 03/08/16) Gabapentin (Verified Allergy, Unknown, SWELLING, 03/08/16) NSAIDs (Verified Adverse Reaction, Severe, ELEVATES LIVER ENZYMES, ) Atorvastatin (Verified Adverse Reaction, Intermediate, AFFECTS DIGESTION, 03/08/16) Acetaminophen (Verified Adverse Reaction, Unknown, contraindicated, impairs liver function, 03/08/16) Chocolate (Verified Adverse Reaction, Unknown, Other, 03/08/16) Due to Meniere's Disease Meloxicam (Verified Adverse Reaction, Unknown, AFFECTS KIDNEYS, 03/08/16) Metformin (Verified Adverse Reaction, Unknown, AFFECTS KIDNEYS, 03/08/16) Medications Aspirin-Dipyridamole (Aspirin/Dipyridamole 25-200 mg), 1 CAP PO BID Buspirone Hcl (Buspirone Hcl), 7.5 MG PO BID PRN for Anxiety Calcium Carbonate-Vitamin D W/ (Caltrate 600 Plus), 1 TAB PO BID Duloxetine HCl (Duloxetine HCl), 30 MG PO BID Folic Acid (Folvite), 3 MG PO DAILY Hydroxychloroquine Sulfate (Hydroxychloroquine Sulfat), 200 MG PO BID Levofloxacin (Levaquin), 750 MG PO HS Levothyroxine Sodium (Levothyroxine Sodium), 150 MCG PO DAILY Loperamide Hcl (Imodium A-D), 2 MG PO DAILY PRN for Diarrhea Meclizine HCl (Meclizine HCl), 25 MG PO TID PRN for Dizziness or Vertigo Menthol-Zinc Oxide (Calmoseptine), 1 APPLN TOP QPM Methotrexate (Methotrexate Sodium), 25 MG INJ WK Mirabegron (Myrbetriq Er), 50 MG PO DAILY Multiple Vitamin (One Daily Essential), 1 TAB PO DAILY Nutritional Supplements (Boost), 1 DOSE PO TID Ondasetron Odt (Zofran Odt), 4 MG SL Q4-6HRS PRN for Nausea Polyethylene (Polyethylene Glycol 3350), 17 GM PO DAILY Potassium Chloride (Micro-K Ext Rel), 10 MEQ PO QAM Ranitidine Hcl (Zantac), 300 MG PO BID Saccharomyces Boulardii (Florastor), 250 MG PO QAM Simvastatin (Simvastatin), 10 MG PO DAILY Tapentadol Hcl (Nucynta Er), 50 MG PO BID Tapentadol Hcl (Nucynta), 50 MG PO Q6H PRN for Pain Review of Systems Could not perform because patient was unable to cooperate. Physical Exam Vital Signs (24 Hours) Date Time Temp Pulse Resp B/P Pulse Ox O2 Delivery O2 Flow Rate FiO2 04/12/16 08:44 36.7 93 16 135/71 99 04/12/16 04:11 36.6 87 17 142/102 95 Nasal Cannula 3.5 04/12/16 04:00 Nasal Cannula 3.0 04/12/16 01:57 84 18 100 Nasal Cannula 3.0 04/12/16 00:05 36.6 79 16 157/61 100 Nasal Cannula 3.5 04/12/16 00:00 Nasal Cannula 3.0 04/11/16 21:16 36.6 79 20 192/83 Nasal Cannula 3.0 04/11/16 20:19 91 04/11/16 20:00 92 188/84 91 Nasal Cannula 4.0 04/11/16 18:39 89 16 160/64 100 Room Air 04/11/16 15:56 86 19 160/73 100 Nasal Cannula 3.0 04/11/16 14:31 98 Nasal Cannula 3.0 04/11/16 14:22 36.8 86 20 135/55 98 Nasal Cannula 3.0 04/11/16 14:22 85 Room Air 04/11/16 14:22 85 Room Air 04/11/16 14:21 89 General Appearance: + mild distress, + cachetic Head: normocephalic, atraumatic ENT: + pertinent finding (Hearing aid missing per this morning, extremely hard of hearing ) Respiratory/Chest: + wheezing Cardiovascular: regular rate, rhythm, no edema (trace edema b/l of UEs and LEs) , no gallop, no JVD, no murmur, normal peripheral pulses Abdomen/GI: normal bowel sounds Skin: normal color, warm/dry Poor quality physical exam due to patient's state. Diagnostics Laboratory Results Results Past 24 Hours Test 04/11/16 15:25 04/11/16 15:50 04/11/16 16:30 04/12/16 06:43 Range/Units D-Dimer 5130 0-500 ug/L FEU Bedside Lactic Acid Venous 0.76 0.90-1.70 mmol/L White Blood Count 14.80 4.8-10.8 K/uL Red Blood Count 3.22 4.2-5.4 M/uL Hemoglobin 9.6 12.0-16.0 g/dL Hematocrit 29.9 37-47 % Mean Corpuscular Volume 92.9 80-100 fL Mean Corpuscular Hemoglobin 29.8 25-34 pg Mean Corpuscular Hemoglobin Concent 32.1 32-36 g/dl Platelet Count 217 130-400 K/uL Mean Platelet Volume 9.4 7.4-10.4 fL Neutrophils (%) (Auto) 90.9 % Lymphocytes (%) (Auto) 5.9 % Monocytes (%) (Auto) 2.8 % Eosinophils (%) (Auto) 0.0 % Basophils (%) (Auto) 0.0 % Neutrophils # (Auto) 13.45 1.4-6.5 K/uL Lymphocytes # (Auto) 0.87 1.2-3.4 K/uL Monocytes # (Auto) 0.42 0.11-0.59 K/uL Eosinophils # (Auto) 0.00 0-0.5 K/uL Basophils # (Auto) 0.00 0-0.2 K/uL RDW Standard Deviation 53.5 36.4-46.3 fL RDW Coefficient of Variation 15.8 11.5-14.5 % Immature Granulocyte % (Auto) 0.4 % Immature Granulocyte # (Auto) 0.06 0.00-0.02 K/uL Sodium Level 134 136-145 mmol/L Potassium Level 3.9 3.5-5.1 mmol/L Chloride Level 87 98-107 mmol/L Carbon Dioxide Level 42 21-32 mmol/L Anion Gap 5.0 3-11 mmol/L Blood Urea Nitrogen 26 7-18 mg/dl Creatinine 0.67 0.60-1.20 mg/dl Est Creatinine Clear Calc Drug Dose 58.6 ml/min Estimated GFR () 96.9 Estimated GFR (Non- 83.6 BUN/Creatinine Ratio 38.9 10-20 Random Glucose 148 70-99 mg/dl Calcium Level 9.6 8.5-10.1 mg/dl Magnesium Level 1.6 1.8-2.4 mg/dl Total Bilirubin 0.4 0.2-1 mg/dl Direct Bilirubin 0.2 0-0.2 mg/dl Aspartate Amino Transf (AST/SGOT) 32 15-37 U/L Alanine Aminotransferase (ALT/SGPT) 41 12-78 U/L Alkaline Phosphatase 71 45-117 U/L Total Creatine Kinase 62 26-192 U/L Creatine Kinase MB 4.2 0.5-3.6 ng/ml Creatine Kinase MB Ratio 6.8 0-3.0 Troponin I 0.103 0-0.045 ng/ml Total Protein 6.2 6.4-8.2 gm/dl Albumin 2.4 3.4-5.0 gm/dl Bedside Glucose 187 70-90 mg/dl Test 04/12/16 07:55 Range/Units Troponin I 0.082 0-0.045 ng/ml Microbiology Results 04/11/16 Blood Culture, Received Pending Diagnostic Radiology Chest Xray: mild interstitial pulmonary edema, b/l pleural effusion. 1 cm nodular density in RLL. Chest CT: Left pleural effusion, small right pleural effusion. Nodular airspace opacities in RLL consistent with penumonia. No evidence of PE. EKG NSR at 89, RBBB, acute St-T changes. Normal EKG Impression Assessment and Plan Assessment: This is a 81 year old white female with a complicated past medical history who presented with probable aspiration pneumonia, altered mental status, and weakness. After extensive discussion with patient's daughter, it was determined that the patient and family would like to discuss hospice. Time was spent discussing the plan to go forth from this meeting, including meeting with the palliative nurse consult and what some of her options may look like. Plan: Hospice -Consult palliative care nurse and present patient with her options and resources. -Per patient's daughter, is most interested in pursuing a hospice bed in [facility], or at [facility]. -Withdraw antibiotics, interventional medications upon consult with palliative care. Level of Care Hospice Advanced Directives Existing Advance Directive: Yes Existing Living Will: Yes Existing Power of Dat Instructor: Yes DVT Prophylaxis T.E.D. stockings, other (aggrenox)
--- NOTE | 2016-04-12 09:31 | Family Medicine Progress Note ---
Progress Note Date of Service Apr 12, 2016. Subjective Pt evaluation today including: conversation w/ patient Patient is responsive with gestures but not overly verbal Follows simple commands Admits to shortness of breath Constitutional: No chills, No fever Eyes: No worsening of vision Respiratory: + dyspnea on exertion, + shortness of breath, No cough, No sputum, No wheezing Cardiovascular: No chest pain Abdomen: No constipation, No diarrhea, No nausea, No pain, No vomiting Female : No dysuria, No urinary frequency Objective Physical Exam General Appearance: no apparent distress Eyes: PERRL, EOMI Neck: supple, no adenopathy, thyroid normal Respiratory/Chest: no respiratory distress, no accessory muscle use, + decreased breath sounds (bases bilaterally), + pertinent finding (no wheezing) Cardiovascular: regular rate, rhythm, no edema Abdomen: normal bowel sounds, non tender, soft Neurologic/Psychiatric: no motor/sensory deficits, alert, + facial droop, + depressed affect Assessment and Plan This is a 81 y/o F who presented with metabolic encephalopathy and RLQ abdominal pain. She was found to have RLL pneumonia with bilateral effusions. She was started on antibiotics along supplemental Therapy. She also did have a mild troponin elevation, likely secondary to demand ischemia which showed a downward trend. She was also being treated for a pressure ulcer on her buttock, stage 2. Today there were discussions with the daughter about comfort care measures/ hospice and together with Palliative care we have decided to proceed with comfort care measures. The daughter reiterated that she has steadily declined over the last few months and has had several admissions. She prefers not to continue with aggressive treatment. If she remains stable enough, her daughter would like for her to go [facility]. Inpatient hospice will be unlikely unless she is unstable for transfer. D/C all meds, IV draws Roxanol Oral for pain Scopolamine for secretions. Needs POLST form completion History Resident Physician Supervision Note: I was present with Dr. Ahmadi during the history and exam. I discussed the case with the resident and agree with the findings and plan as documented in the note. Any exceptions or clarifications are listed here. Pt seen and examined at bedside. Very hard of hearing, so difficult to ascertain mental status but answering questions appropriately. Would like to leave, no apparent pain or SOB. General Appearance: no apparent distress, thin Respiratory: chest non-tender, normal breath sounds, no accessory muscle use, decreased breath sounds (b/l bases) Cardiovascular: normal peripheral pulses, regular rate, rhythm, no edema Gastrointestinal: normal bowel sounds, non tender, soft, no organomegaly Assessment/Plan 81 y/o female w/ h/o Lupus, cerebrovascular disease w/ ?TIAs, DMII, hypothyroidism and meniere's disease p/w pneumonia possibly 2/2 aspiration Metabolic encephalopathy - likely 2/2 aspiration PNA - transition to hospice care, d/c abx, morphine therapy/sublingual roxinol for symptomatic ctrl RLL PNA - likely 2/2 aspiration following significant esophageal dysmotility - transition to hospice B/L Pleural effusions - Roxinol for SOB/symptomatic control Elevated Troponin/chronic congestive heart failure/hypoalbuminemia - stop trend h/o Lupus w/ cerebrovascular dz - hold aggrenox, folic acid and plaquenil GERD - rantidine for comfort Hyperlipidemia - d/c statin therapy Anxiety - continue medication for anxiety Bladder spasm - continue myrbetriq Sacral decubitus ulcer, stage II - wound care for comfort 45 minutes were spent sitting with the patient and her daughter discussing goals of care. After reviewing the records and the daughter (POAs) history, the daughter states that she has been worked up extensively for esophageal dysmotility s/p stroke for which she was participating in S/S, as well as PT/OT for deconditioning resulting in previous episode of pneumonia which also likely resulted from aspiration. The daughter states that her mother has said, each time that she was ill, that it was time and she should be allowed to . The daughter has been fighting it, but also feels that, because of the constant complications including recurrent aspiration pneumonia, that palliative care at this time would be the right choice. She is already DNR. Palliative care was consulted. Interventions discontinued and presently aiming for [facility] v. inpatient hospice bed based on timing of the former and clinical presentation for the latter.
--- NOTE | 2016-04-12 11:44 | Clinical Documentation Query ---
QUERY 1 OF [address] HORN, In your clinical opinion is this patient being managed for: ( x ) Metabolic encephalopathy ( ) Other explanation of clinical findings (Please Explain) ( ) Unable to determine (Please Define) ( ) Need to Discuss ( ) Not Agree The medical record reflects the following clinical findings, treatment, and risk factors. Clinical Indicators:81 yo female presenting with increasing confusion/weakness and lethargy. WBC 14.80, O2 sat 85% Treatment: O2 support, IV vancomycin, IV zosyn, IV levaquin, IV fluids, pending blood cultures, Risk Factors: pneumonia, hypoxia, dehydration QUERY 2 OF 3 In your clinical opinion is this patient being managed for: ( ) possible MRSA Pneumonia ( ) Other explanation of clinical findings (Please Explain) ( ) Unable to determine (Please Define) ( ) Need to Discuss (x ) Not Agree- not confirmed mrsa The medical record reflects the following clinical findings, treatment, and risk factors. Clinical Indicators: Pt recently hospitalized and treated for pneumonia. Discharged to extended care for rehabilitation. WBC 14.80, O2 sat 85% on RA, CT chest with Nodular airspace opacities within the right lower lobe and right upper lobe, likely secondary to pneumonia. Treatment: IV vancomycin, IV zosyn, IV levaquin, IV solumedrol, O2 support, Risk Factors: recent pneumonia with outpatient treatment at time of ER presentation, DM, extended care facility QUERY 3 OF 3 In your clinical opinion is this patient being managed for: ( x ) Pressure ulcer of buttock/sacral region, stage 2, POA ( ) Other explanation of clinical findings (Please Explain) ( ) Unable to determine (Please Define) ( ) Need to Discuss ( ) Not Agree The medical record reflects the following clinical findings, treatment, and risk factors. Clinical Indicators: Nursing documentation reflects pt had a stage II ulcer on medial buttocks. H/P does not include documentation of pressure ulcer Treatment:WOCN consult, optifoam applied initially, repositioning, Risk Factors: age, fraility, extended illness--recent pneumonia, DM Please clarify and document your clinical opinion in the progress notes and discharge summary. Terms such as "probable", "suspected", "likely", "questionable", "possible", or "still to be ruled out" are acceptable. IF IN AGREEMENT, YOU MUST DOCUMENT ABOVE DIAGNOSTIC STATEMENT IN DAILY PROGRESS NOTES AND DISCHARGE SUMMARY. This document is not part of the patient's record. Thank You, Crystal Christensen RN [phone]
--- NOTE | 2016-04-12 11:47 | Clinical Documentation Query ---
QUERY 1 OF [address] BEACH, In your clinical opinion is this patient being managed for: (X) Metabolic encephalopathy ( ) Other explanation of clinical findings (Please Explain) ( ) Unable to determine (Please Define) ( ) Need to Discuss ( ) Not Agree The medical record reflects the following clinical findings, treatment, and risk factors. Clinical Indicators:81 yo female presenting with increasing confusion/weakness and lethargy. WBC 14.80, O2 sat 85% Treatment: O2 support, IV vancomycin, IV zosyn, IV levaquin, IV fluids, pending blood cultures, Risk Factors: pneumonia, hypoxia, dehydration QUERY 2 OF 3 In your clinical opinion is this patient being managed for: (X) possible MRSA Pneumonia ( ) Other explanation of clinical findings (Please Explain) ( ) Unable to determine (Please Define) ( ) Need to Discuss ( ) Not Agree The medical record reflects the following clinical findings, treatment, and risk factors. Clinical Indicators: Pt recently hospitalized and treated for pneumonia. Discharged to extended care for rehabilitation. WBC 14.80, O2 sat 85% on RA, CT chest with Nodular airspace opacities within the right lower lobe and right upper lobe, likely secondary to pneumonia. Treatment: IV vancomycin, IV zosyn, IV levaquin, IV solumedrol, O2 support, Risk Factors: recent pneumonia with outpatient treatment at time of ER presentation, DM, extended care facility QUERY 3 OF 3 In your clinical opinion is this patient being managed for: (X) Pressure ulcer of buttock/sacral region, stage 2, POA ( ) Other explanation of clinical findings (Please Explain) ( ) Unable to determine (Please Define) ( ) Need to Discuss ( ) Not Agree The medical record reflects the following clinical findings, treatment, and risk factors. Clinical Indicators: Nursing documentation reflects pt had a stage II ulcer on medial buttocks. H/P does not include documentation of pressure ulcer Treatment:WOCN consult, optifoam applied initially, repositioning, Risk Factors: age, fraility, extended illness--recent pneumonia, DM Please clarify and document your clinical opinion in the progress notes and discharge summary. Terms such as "probable", "suspected", "likely", "questionable", "possible", or "still to be ruled out" are acceptable. IF IN AGREEMENT, YOU MUST DOCUMENT ABOVE DIAGNOSTIC STATEMENT IN DAILY PROGRESS NOTES AND DISCHARGE SUMMARY. This document is not part of the patient's record. Thank You, Crystal Christensen, JOIE [phone]
[2016-04-12] MEDS ORDERED: SCOPOLAMINE 1.5 MG TDSY TD PRN (16:00)
[2016-04-12] MEDS ORDERED: VANCOMYCIN INJ 1,000 MG in SODIUM CHLORIDE 0.9% 250ML 250 ML IV SCH (16:00)
[2016-04-12] MEDS ORDERED: MoRPHine SULFATE 5 MG/0.25 ML UDP PO PRN (16:00)
--- NOTE | 2016-04-12 16:16 | ECHOCARDIOGRAM REPORT ---
*NOTICE TO RECEIVING [employer]Y This information is strictly Confidential and protected under [place] law. [place] law prohibits you from making any further disclosure of this information unless further disclosure is expressly permitted by the written consent of the person to whom it pertains or is authorized by law. A general authorization for the release of medical or other information is not sufficient for this purpose. Hospital accepts no responsibility if the information is made available to any other person, INCLUDING THE PATIENT. Interpretation Summary * Name: DANNY LOCKWOOD Study Date: 04/12/2016 06:58 AM BP: 142/102 mmHg * Patient Location: [facility] HR: 87 * : 1935 (M/d/yyyy) Gender: Female Height: 62 in * Age: 81 yrs Ethnicity: CA Weight: 134 lb * Ordering Physician: Kaiden Avelar * Referring Physician: No Doctor, Assigned * Performed By: Blake Abdul RCS * * Reason For Study: Elevated Troponins * BSA: 1.6 m2 * -- Conclusions -- * 1. Normal LV size, mild concentric LVH. * 2. Normal LV systolic function. LVEF 60-65%. No regional wall motion abnormalities. * 3. Normal RV size and function. * 4. Mitral annular calcification with mild to moderate mitral stenosis and mild to moderate mitral regurgitation. * 5. Mild aortic valve sclerosis without stenosis. * 6. Moderate to severe pulmonary hypertension (Est PASP 60-65 mmHg), Elevated CVP (Est RA pressure 15 mmHg). * 7. Compared with prior study on 02/29/2016: No significant changes. Procedure Details * A complete two-dimensional transthoracic echocardiogram was performed (2D, M-mode, Doppler and color flow Doppler). Left Ventricle * The left ventricle is normal in size. * There is mild concentric left ventricular hypertrophy. * Ejection Fraction = 60-65%. * No regional wall motion abnormalities noted. Right Ventricle * The right ventricle is grossly normal size. * The right ventricular systolic function is normal as assessed by tricuspid annular plane systolic excursion (TAPSE) (normal >1.5 cm). Atria * The left atrial size is normal. * Right atrial size is normal. * No ASD detected; PFO is not assessed. Mitral Valve * There is moderate to severe mitral annular calcification. * There is mild to moderate mitral stenosis. * There is mild to moderate mitral regurgitation. Tricuspid Valve * The tricuspid valve is not well visualized, but is grossly normal. * There is mild tricuspid regurgitation. * Right ventricular systolic pressure is elevated at 50-60mmHg. Aortic Valve * Aortic valve sclerosis mild, without significant aortic valvular stenosis. * No hemodynamically significant valvular aortic stenosis. * There is no significant aortic regurgitation. Pulmonic Valve * The pulmonic valve is not well visualized. * There is no pulmonic valvular stenosis. * There is no pulmonic valvular regurgitation. Great Vessels * The aortic root and proximal ascending aorta are normal sized. Pericardium/Pleural * There is no pericardial effusion. Left Ventricular Diastolic Function * Diastolic dysfunction, Grade II, consistent with elevated left atrial pressure. MMode 2D Measurements and Calculations IVSd 1.4 cm IVSs 1.8 cm LVIDd 3.7 cm LVIDs 2.4 cm LVPWd 1.6 cm LVPWs 1.7 cm IVS/LVPW 0.90 FS 35.0 % EDV(Teich) 58.7 ml ESV(Teich) 20.5 ml EF(Teich) 65.1 % EDV(cubed) 51.3 ml ESV(cubed) 14.1 ml EF(cubed) 72.5 % % IVS thick 30.0 % % LVPW thick 8.9 % LV mass(C)d 206.0 grams LV mass(C)dI 127.8 grams/m\S\2 LV mass(C)s 163.4 grams LV mass(C)sI 101.4 grams/m\S\2 CO(Teich) 3.6 l/min CI(Teich) 2.2 l/min/m\S\2 SV(Teich) 38.2 ml SI(Teich) 23.7 ml/m\S\2 CO(cubed) 3.5 l/min CI(cubed) 2.2 l/min/m\S\2 SV(cubed) 37.2 ml SI(cubed) 23.0 ml/m\S\2 Ao root diam 3.2 cm Ao root area 7.8 cm\S\2 ACS 1.4 cm LA dimension 3.3 cm LA/Ao 1.0 LVOT diam 1.8 cm LVOT area 2.5 cm\S\2 LVAd ap4 27.7 cm\S\2 LVLd ap4 7.6 cm EDV(MOD-sp4) 85.0 ml LVAs ap4 14.9 cm\S\2 LVLs ap4 6.3 cm ESV(MOD-sp4) 31.0 ml EF(MOD-sp4) 63.5 % LVAd ap2 28.3 cm\S\2 LVLd ap2 7.9 cm EDV(MOD-sp2) 85.0 ml LVAs ap2 13.2 cm\S\2 LVLs ap2 5.6 cm ESV(MOD-sp2) 27.0 ml EF(MOD-sp2) 68.2 % CO(MOD-sp4) 5.1 l/min CI(MOD-sp4) 3.1 l/min/m\S\2 SV(MOD-sp4) 54.0 ml SI(MOD-sp4) 33.5 ml/m\S\2 CO(MOD-sp2) 5.5 l/min CI(MOD-sp2) 3.4 l/min/m\S\2 SV(MOD-sp2) 58.0 ml SI(MOD-sp2) 36.0 ml/m\S\2 Doppler Measurements and Calculations MV E max salima 206.3 cm/sec MV A max salima 155.1 cm/sec MV E/A 1.3 MV P1/2t max salima 228.5 cm/sec MV P1/2t 56.8 msec MVA(P1/2t) 3.9 cm\S\2 MV dec slope 1178.8 cm/sec\S\2 MV dec time 0.18 sec Ao V2 max 219.8 cm/sec Ao max PG 19.4 mmHg Ao max PG (full) 14.0 mmHg Ao V2 mean 143.3 cm/sec Ao mean PG 9.5 mmHg Ao V2 VTI 45.4 cm CHRISTOPHER(V,A) 1.3 cm\S\2 CHRISTOPHER(V,D) 1.3 cm\S\2 LV V1 max PG 5.4 mmHg LV V1 max 116.5 cm/sec SV(Ao) 354.1 ml SI(Ao) 219.6 ml/m\S\2 PA V2 max 132.1 cm/sec PA max PG 7.0 mmHg PA V2 mean 77.1 cm/sec PA mean PG 2.8 mmHg PA V2 VTI 26.9 cm TR max salima 360.1 cm/sec
[2016-04-12] MEDS ORDERED: NURSING VERBAL MED ORDER ONE (23:30)
[2016-04-13] MEDS: MoRPHine SULFATE 5 MG/0.25 ML UDP PO PRN ×2 (00:07→09:41)
[2016-04-13] MEDS: CHECK SCOPOLAMINE PATCH PLACEMENT SCH ×3 (00:16→16:21)
[2016-04-13] MEDS ORDERED: LORAZEPAM 2 MG/ML 1 ML VIAL IV STA (01:28)
[2016-04-13] MEDS ORDERED: LORAZEPAM 2 MG/ML 1 ML VIAL IV PRN (01:30)
[2016-04-13] MEDS ORDERED: LORAZEPAM INJ 0.5 MG in SYRINGE 0.75 ML IV STA (01:33)
[2016-04-13] MEDS ORDERED: LORAZEPAM INJ 0.5 MG in SYRINGE 0.75 ML IV PRN (05:15)
[2016-04-13 08:30] VITALS: O2SAT 94
[2016-04-13 08:43] VITALS: O2SAT 93
[2016-04-13 08:49] VITALS: BP 205/69; PULSE 97; TEMP 36.4; O2SAT 93
[2016-04-13] MEDS: BOOST VANILLA PO SCH ×6 (09:31→19:01)
[2016-04-13 10:54] VITALS: BP 208/100
--- NOTE | 2016-04-13 11:31 | Palliative Care Consultation ---
Consultation Date of Consultation: Apr 12, 2016 Requesting Physician: Dr. Betancourt Attending Physician: Dr. Betancourt Reason for Consultation: Goals of care, possible hospice History of Present Illness This 81 year old female patient presented to the ED two days ago with complaints of hypoxia and altered mental status per report. The patient resides at [facility], apparently the daughter reported that the patient had worsening SOB and confusion since April 07 when she was started on Levaquin. She was also given lasix 3 days last week for BL hand and lower extremity edema. Her oxygen saturation at [facility] reportedly was dropping to the 80s at rest and 60s with ambulation. She was sent to the ED where a CXR showed BL pleural effusions and nodular density in the RLL. CTA of the chest showed no PE , but likely RLL pneumonia and degenerative changes in the thoracic spine. This patient has a history of gastroparesis and esophageal dysmotility and has been known to have aspiration issues. The daughter reports that she normally only eats soft things such as pudding and oatmeal and will drink Boost. The patient has recently had a rapid decline in functional status and overall condition, per the daughter, since February. She has had about 14 hospital visits since February 2015. The patient is expressing that she is tired and "wants to ." The daughter/POA, Lena Nur, had a long conversation with Dr. Betancourt yesterday, and she and the patient decided to make patient comfort measures only. Palliative care consulted to assist with goals of care and discuss options for hospice/comfort care. I met with the patient and Lena in the room. The patient was rather lethargic , but she did wake spontaneously and was answering questions appropriately. She was oriented to person, place and somewhat event. She stated that she did have pain in her shoulders. Lena confirmed with me that patient is now comfort measures only, she would like to stop IVF and antibiotics. These are the patient's wishes as well. The goal is to get the patient back to [facility] with hospice. Past Medical/Surgical History Medical History: Acute renal failure Shelton's Palsy Lyme disease Depression DM Esophageal dysmotility Gastroparesis GERD BL foot drop Hypertension Hypothyroidism Lupus Mnire disease Osteoarthritis right shoulder Osteoporosis Rheumatoid arthritis Social History Smoking Status: Former Smoker (40 pack year history but quit in the past few years) History of Alcohol Use: No Drug Use: none Marital Status: Housing Status: care home ([facility]) Occupation Status: retired Review of Systems Constitutional: + weakness Respiratory: No cough, No shortness of breath Cardiac: No chest pain Abdomen: No nausea, No pain, No vomiting limited ROS Allergies Coded Allergies: BEE STING (Unverified Allergy, Severe, THROAT SWELLING, 03/08/16) Carbamazepine (Verified Allergy, Unknown, unkn, 03/08/16) Gabapentin (Verified Allergy, Unknown, SWELLING, 03/08/16) NSAIDs (Verified Adverse Reaction, Severe, ELEVATES LIVER ENZYMES, ) Atorvastatin (Verified Adverse Reaction, Intermediate, AFFECTS DIGESTION, 03/08/16) Acetaminophen (Verified Adverse Reaction, Unknown, contraindicated, impairs liver function, 03/08/16) Chocolate (Verified Adverse Reaction, Unknown, Other, 03/08/16) Due to Meniere's Disease Meloxicam (Verified Adverse Reaction, Unknown, AFFECTS KIDNEYS, 03/08/16) Metformin (Verified Adverse Reaction, Unknown, AFFECTS KIDNEYS, 03/08/16) Medications Current Inpatient Medications Medications (Trade) Dose Ordered Sig/Ugo Route Start Time Stop Time Status Last Admin Dose Admin Enteral Nutritional Formula (Boost) 1 can TID PO 04/11/16 21:00 05/11/16 20:59 04/11/16 21:00 1 CAN Scopolamine (Transderm-Scop Patch) 1.5 mg Q72H PRN TD 04/12/16 16:00 05/12/16 15:59 04/13/16 00:13 1.5 MG Miscellaneous (Remove Transderm-Scop Patch) 1 ea Q72H PRN N/A 04/15/16 16:30 05/15/16 16:29 Miscellaneous Information (Check Scopolamine Patch Placement) 1 ea QS N/A 04/13/16 00:00 05/13/16 00:00 04/13/16 07:48 1 EA Morphine Sulfate (Roxanol Oral Soln) 5 mg Q4H PRN PO 04/12/16 23:45 04/26/16 23:44 04/13/16 09:41 5 MG Lorazepam 0.5 mg 0.5 mg Q4H PRN IV 04/13/16 01:30 05/13/16 01:29 Lorazepam/Syringe (Ativan Inj/ Syringe) 1 ml @ 1 mls/min Q4H PRN IV 04/13/16 05:15 05/13/16 05:14 Physical Exam Date Time Temp Pulse Resp B/P Pulse Ox O2 Delivery O2 Flow Rate FiO2 04/13/16 08:49 36.4 97 20 205/69 93 Nasal Cannula 2.0 04/13/16 08:43 93 Nasal Cannula 2.0 04/13/16 00:00 Nasal Cannula 3.0 04/12/16 20:30 36.7 88 18 148/90 97 Nasal Cannula 04/12/16 20:30 Nasal Cannula 3.0 04/12/16 20:28 37.0 90 20 100 3.0 04/12/16 20:00 Nasal Cannula 3.0 04/12/16 19:05 37.0 90 20 178/74 100 Nasal Cannula 2.0 04/12/16 16:00 Nasal Cannula 3.0 04/12/16 16:00 36.5 90 20 155/92 94 Nasal Cannula 2.0 04/12/16 14:08 91 18 94 Nasal Cannula 3.0 04/12/16 12:04 36.6 88 16 159/79 99 04/12/16 12:00 Nasal Cannula 3.0 General Appearance: + pertinent finding (appears uncomfortable when awake. chronically ill appearing) Neck: no JVD Respiratory: no respiratory distress, no accessory muscle use, + decreased breath sounds (extremely diminished air exchange), + pertinent finding (2LNC) Cardiovascular: regular rate, rhythm, + normal peripheral pulses Abdomen: normal bowel sounds, non tender, soft Neurologic/Psychiatric: + pertinent finding (lethargic, mostly oriented) Skin: + pallor Laboratory Results Last 24 Hours Test 04/12/16 11:29 Bedside Glucose 208 mg/dl Assessment & Plan Palliative Performance Scale: 20 % Problem list: Altered mental status- metabolic encephalopathy Weakness Pain, shoulders RLL pneumonia- likely aspiration BL pleural effusions CHF Hypoalbuminemia Elevated troponin Sacral decubitus Goals of care (Z51.5) Palliative care plan: Discussed with patient, daughter/POA Lena Singhledge, Dr. Betancourt, and Dr. Ahmadi. Plan is for comfort measures only, patient is DNR/DNI. Discontinue IVF, antibiotics and any medications not related to comfort. Allow comfort feeds if patient able to tolerate. Goal is to return to [facility] with hospice. I updated classification case manager as well. Recommend Roxanol 5mg Q3h PRN pain or SOB for now, increase if needed but patient is opioid naive. Thank you kindly for this consult. I will follow as needed.
--- NOTE | 2016-04-13 17:50 | Family Medicine Progress Note ---
Progress Note Date of Service Apr 13, 2016. Subjective Pt evaluation today including: conversation w/ patient Voiding: incontinence Patient is alert but minimally responsive, Nods head Admits to pain all over Denies shortness of breath Constitutional: + see HPI (Limited ROS due to patients mentation) Objective Physical Exam General Appearance: no apparent distress Eyes: PERRL Neck: supple, no adenopathy Respiratory/Chest: no respiratory distress, no accessory muscle use, + decreased breath sounds Cardiovascular: regular rate, rhythm, no edema Abdomen: normal bowel sounds, non tender Neurologic/Psychiatric: + depressed affect, + disoriented Assessment and Plan This is a 81 y/o F who presented with metabolic encephalopathy and RLQ abdominal pain. She was found to have RLL pneumonia with bilateral effusions. She was started on antibiotics along supplemental Therapy. She also did have a mild troponin elevation, likely secondary to demand ischemia which showed a downward trend. She was also being treated for a pressure ulcer on her buttock, stage 2. After discussions yesterday, The patient is now comfort care / hospice. Patient is waiting to be transferred to [facility]. If she becomes unstable, she will likely have inpatient hospice D/C all meds, IV draws, VS checks Roxanol Oral for pain Scopolamine for secretions. AVOID Ativan if possible. Needs POLST form completion History Resident Physician Supervision Note: I was present with Dr. Ahmadi during the history and exam. I discussed the case with the resident and agree with the findings and plan as documented in the note. Any exceptions or clarifications are listed here. Pt seen and examined at bedside. Agitation in the cmv driver for which she rec'd ativan 0.5mg IV x 1 with resultant somnolence. Rousable to voice but without sustained consciousness. Daughter is present and states that her mother has been sleepy since she'd been there. She is having an understandably difficult time with her mother's condition, but is resilient. We will notify her with any changes in her mother's condition. General Appearance: other (somnolent but arousable) Cardiovascular: normal peripheral pulses, regular rate, rhythm, no edema, systolic murmur (2/6 [place]), gallop/S3 Gastrointestinal: normal bowel sounds, non tender, soft, no organomegaly Assessment/Plan 81 y/o female w/ h/o Lupus, cerebrovascular disease w/ ?TIAs, DMII, hypothyroidism and meniere's disease p/w pneumonia possibly 2/2 aspiration PRESENTLY HOSPICE PATIENT AWAITING TRANSFER TO [facility] Metabolic encephalopathy - likely 2/2 aspiration PNA - off abx, using morphine/ roxanol for pain and respiratory drive control. AVOID SEDATIVES for agitation unless failed control with narcotic pain medication as resulting sedation with negatively impact cognition. RLL PNA - likely 2/2 aspiration following significant esophageal dysmotility - transition to hospice B/L Pleural effusions - Roxinol for SOB/symptomatic control Sacral decubitus ulcer, stage II - wound care for comfort Palliative care was consulted.
[2016-04-13] MEDS ORDERED: MoRPHine SULFATE 5 MG/0.25 ML UDP PO PRN (21:45)
[2016-04-14] MEDS ORDERED: VANCOMYCIN TROUGH SCH (03:30)
--- NOTE | 2016-04-27 18:44 | Discharge Summary ---
Discharge Summary Admission Date: Apr 11, 2016 at 19:39 Discharge Date: Apr 14, 2016 Principal Diagnosis: Recurrent aspiration pneumonia Problems/Secondary Diagnoses: (1) Depressive Disorder Nec Status: Chronic (2) Esophageal Reflux Status: Chronic (3) Hypothyroidism Nos Status: Chronic (4) Osteoporosis Nos Status: Chronic Immunizations: Have You Had Influenza Vaccine: Yes History of Tetanus Vaccine?: Yes Tetanus Immunization Date: Apr 28, 1999 History of Pneumococcal: Yes Pneumococcal Date: Nov 22, 2002 History of Hepatitis B Vaccine: No Discharge Exam Mrs. Christensen presented to the hospital with weakness which was attributed to recurrent aspiration pneumonia secondary to esophageal dysmotility following a CVA for which she was undergoing rehabilitation. After discussion with her POA ( daughter), the decision was reached to make her hospice care in light of the recurrent nature of the condition and the resultant invasive management, as well as the stated preferences of the patient at the time of the examination. Antibiotic therapy was discontinued and pain and agitation control with morphine was initiated. The patient began a decline which resulted in considerable agitation which was controlled with ativan x 1, as well as morphine. Her condition continued to deteriorate, and she passed the night of 04.14.2016. For most recent SOAP and examination, please see the inpatient note from 04.13.2016 Hospital Course Assessment and plan at the time of : 81 y/o female w/ h/o Lupus, cerebrovascular disease w/ ?TIAs, DMII, hypothyroidism and meniere's disease p/w pneumonia possibly 2/2 aspiration Metabolic encephalopathy - likely 2/2 aspiration PNA - off abx, using morphine/ roxanol for pain and respiratory drive control. AVOID SEDATIVES for agitation unless failed control with narcotic pain medication as resulting sedation with negatively impact cognition. RLL PNA - likely 2/2 aspiration following significant esophageal dysmotility - transition to hospice B/L Pleural effusions - Roxinol for SOB/symptomatic control Sacral decubitus ulcer, stage II - wound care for comfort Palliative care was consulted. Total Time Spent: Less than 30 minutes This includes examination of the patient, discharge planning, medication reconciliation, and communication with other providers. Discharge Instructions Please refer to the electronic Patient Visit Report (Discharge Instructions) for additional information.
== END 2016-04-13 19:30 | disposition expired | DRG 177 ==
LOC: ENRESERVTM → ENRESERVDT → EDBD 14:11 → C.EDB 14:12 → C.2E 19:39 → C.4E 04-12 20:23
PROVIDERS: ADMIT Hospitalist; ATTEND Family Medicine
DX: J69.0 Pneumonitis due to inhalation of food and vomit (principal); G93.41 Metabolic encephalopathy; J90 Pleural effusion, not elsewhere classified; J98.11 Atelectasis; I24.8 Other forms of acute ischemic heart disease; M19.012 Primary osteoarthritis, left shoulder; M19.011 Primary osteoarthritis, right shoulder; E03.9 Hypothyroidism, unspecified; K21.9 Gastro-esophageal reflux disease without esophagitis; F41.9 Anxiety disorder, unspecified; Z51.5 Encounter for palliative care; Z66 Do not resuscitate; E78.00 Pure hypercholesterolemia, unspecified; L89.152 Pressure ulcer of sacral region, stage 2; N32.89 Other specified disorders of bladder; L89.302 Pressure ulcer of unspecified buttock, stage 2; Z86.73 Personal history of transient ischemic attack (TIA), and cerebral infarction without residual deficits; I10 Essential (primary) hypertension; M06.9 Rheumatoid arthritis, unspecified; Z82.49 Family history of ischemic heart disease and other diseases of the circulatory system; Z80.9 Family history of malignant neoplasm, unspecified; Z87.891 Personal history of nicotine dependence; Z79.82 Long term (current) use of aspirin